=== PATIENT | female | born 1985 | race Hispanic/Latino ===

== ENCOUNTER 2022-06-06 19:06 | Emergency (ER) | payer OTHER ==
[~2022-06-06] VITALS: Ht 165.1 cm; Wt 81.6 kg
[2022-06-06] MEDS ORDERED: AMOXICILLIN500 MG PO (19:23)
== END 2022-06-06 20:24 | disposition home or self-care (01) ==
LOC: FSED 19:20
DX: H66.92 Otitis media, unspecified, left ear (principal)
CPT/HCPCS: 99282

== ENCOUNTER 2022-11-02 15:31 | Emergency (ER) | payer OTHER ==
[~2022-11-02] VITALS: Ht 167.6 cm; Wt 81.6 kg
[~2022-11-02 15:31] MED LIST: AMOXICILLIN500 MG PO
[2022-11-02] MEDS ORDERED: SODIUM CHLORIDE 0.9% 1000ML 1,000 ML IV ONE (17:30)
[2022-11-02] MEDS ORDERED: PENICILLIN G BENZATHINE LA 1.2 MU TBX ONE (17:32)
[2022-11-02] MEDS ORDERED: DEXAMETHASONE SOD PHOS INJ 4 MG/ML SDV IV ONE (17:45)
[2022-11-02] MEDS ORDERED: SODIUM CHLORIDE 0.9% 1000ML 1,000 ML ONE (17:49)
[2022-11-02] MEDS ORDERED: DEXAMETHASONE SOD PHOS INJ 4 MG/ML SDV ONE (17:49)
[2022-11-02] MEDS ORDERED: PENICILLIN G BENZATHINE LA 1.2 MU TBX IM STA (17:50)
[2022-11-02] MEDS ORDERED: DONNATAL/LIDOCAINE/MAALOX 30 ML SUSP PO ONE (18:00)
[2022-11-02] MEDS ORDERED: LIDOCAINE VISC 2% SOLN 15 ML UDC ONE (18:07)
[2022-11-02] MEDS ORDERED: MAGNESIUM/ALUMINUM/SIMETHICONE 30 ML UDC ONE (18:07)
[2022-11-02] MEDS ORDERED: SODIUM CHLORIDE 0.9% 1000ML 1,000 ML IV SCH (20:30)
[2022-11-02 20:39] LABS: INR 1.09; PARTIAL THROMBOPLASTIN TIME 29.9 seconds (23.8-35.5); PROTHROMBIN TIME 14.3 seconds (11.9-14.5)
== END 2022-11-02 21:34 | disposition home or self-care (01) ==
LOC: FSED 16:11
DX: J02.0 Streptococcal pharyngitis (principal); E86.0 Dehydration; D72.829 Elevated white blood cell count, unspecified; R51.9 Headache, unspecified
CPT/HCPCS: 36415; 80053; 83518; 83605; 85025; 85610; 85730; 87400; 96374; 99283; J0561; J1100; J7030